=== PATIENT | female | born 1945 | race Caucasian/White ===

== ENCOUNTER 2019-04-12 09:09 | Emergency (ER) | payer MEDICARE ==
[2019-04-12 09:37] VITALS: BP 185/96; PULSE 104
--- NOTE | 2019-04-12 10:00 | EDM.PDOC ---
ED HPI GENERAL MEDICAL PROBLEM - General Chief Complaint: Behavioral/Psych Stated Complaint: HIGH BP, ANXIOUS Time Seen by Provider: 04/12/19 09:40 Source of Information: Reports: Patient, Family History Limitations: Reports: No Limitations - History of Present Illness INITIAL COMMENTS - FREE TEXT/NARRATIVE: 73-year-old female who has a long history of labile blood pressure and anxiety, saw bookkeeping machine operator on and they commented that she should see her primary care provider yesterday because her blood pressure is "very high and is going to give her a stroke". She has been extremely anxious since that time and checking her blood pressure frequently but did not call her doctor or going to be seen. She has no chest pain or shortness of breath, no dizziness or headache. This morning she checked her blood pressure and it was over 200 systolic, so came in to be seen. She did not take her hypertensive medication this morning because she wanted me to "see the whole picture". She is shaky and obviously anxious. After arriving to the emergency room 15 minutes later her blood pressure was 185/76. Onset: Unknown/Unsure Associated Symptoms: Reports: Other (Feels like her heart is pounding). Denies : Chest Pain, Diaphoresis, Malaise, Nausea/Vomiting, Shortness of Breath, Weakness - Related Data Allergies Allergy/AdvReac Type Severity Reaction Status Date / Time desogestrel Allergy Cannot Verified 04/12/19 09:25 Remember latanoprost Allergy Cannot Verified 04/12/19 09:25 Remember Sulfa (Sulfonamide Allergy Cannot Verified 04/12/19 09:25 Antibiotics) Remember Home Meds: Home Meds Aspirin 325 mg PO DAILY 09/09/15 [History] Calcium Carbonate/Vitamin D3 [OystCal-D 250 MG-125 Unit] 1 tab PO DAILY [History] Clobetasol [Clobetasol Propionate 0.05%] 30 gm TOP BID 09/09/15 [History] Hydrochlorothiazide 25 mg PO DAILY 09/09/15 [History] Multivitamin [Multi-Vitamin Daily] 1 each PO DAILY 09/09/15 [History] Niacin 1,000 mg PO BEDTIME 09/09/15 [History] Potassium Gluconate [Potassium] 99 mg PO DAILY 09/09/15 [History] Rosuvastatin Calcium [Crestor] 5 mg PO DAILY 09/09/15 [History] Vit C/E/Zn/Coppr/Lutein/Zeaxan [Preservision Areds 2 Softgel] 1 each PO DAILY [History] Losartan [Cozaar] 50 mg PO DAILY 04/12/19 [History] Past Medical History HEENT History: Reports: Impaired Vision, Other (See Below) Other HEENT History: dry eyes Cardiovascular History: Reports: Blood Clots/VTE/DVT, High Cholesterol, Hypertension Gastrointestinal History: Reports: Colon Polyp Genitourinary History: Reports: None Musculoskeletal History: Reports: Back Pain, Chronic, Other (See Below) Other Musculoskeletal History: chronic knee pain Neurological History: Reports: Migraines Oncologic (Cancer) History: Reports: Other (See Below) Other Oncologic History: melanoma on face Dermatologic History: Reports: Other (See Below) Other Dermatologic History: malignant melanoma - Infectious Disease History Infectious Disease History: Reports: Chicken Pox, Measles - Past Surgical History GI Surgical History: Reports: Colonoscopy Female Surgical History: Reports: Tubal Ligation Neurological Surgical History: Reports: None Dermatological Surgical History: Reports: Skin Biopsy Social & Family History - Tobacco Use Smoking Status *Q: Former Smoker Used Tobacco, but Quit: Yes Month/Year Tobacco Last Used: 40 years - Caffeine Use Caffeine Use: Reports: Coffee - Recreational Drug Use Recreational Drug Use: No ED ROS GENERAL - Review of Systems Review Of Systems: See Below Constitutional: Denies: Fever, Chills Respiratory: Denies: Shortness of Breath Cardiovascular: Reports: Palpitations. Denies: Chest Pain GI/Abdominal: Denies: Nausea, Vomiting Skin: Reports: No Symptoms Neurological: Denies: Headache Psychiatric: Reports: Anxiety ED EXAM, GENERAL - Physical Exam Exam: See Below Exam Limited By: No Limitations General Appearance: Alert, Anxious, Other (Patient is so nervous that she has a fine tremor and appears she is upset and about to cry) Respiratory/Chest: No Respiratory Distress, Lungs Clear Cardiovascular: Regular Rate, Rhythm, Tachycardia. No: Extra Beats GI/Abdominal: Soft, Non-Tender Extremities: Normal Inspection. No: Pedal Edema Neurological: Alert, Oriented Psychiatric: Anxious Skin Exam: Warm, Dry Course - Vital Signs Last Recorded V/S: Last Vital Signs Temp 96.9 F 04/12/19 09:15 Pulse 104 H 04/12/19 09:36 Resp 14 04/12/19 09:15 BP 185/96 H 04/12/19 09:36 Pulse Ox 99 04/12/19 09:36 - Re-Assessments/Exams Free Text/Narrative Re-Assessment/Exam: 04/12/19 09:58 Patient admits she did not take her blood pressure medication this morning, and she is also ingested a lot of salt over the recent holidays. She remembers having panic attacks when she was younger and she feels this is "similar". She has been worried she was going to have a stroke for the past 48 hours. She will be discharged with some Ativan to settle her down over the next 48 hours, encouraged to take her medications appropriately as prescribed, and avoid extra salt intake. If still significantly hypertensive on Sunday she should call the clinic or recheck at the emergency room if unable to get into the clinic. She understands the importance of returning sooner if she develops symptoms such as headache, chest pain or stroke symptoms. Departure - Departure Time of Disposition: 10:11 Disposition: Home, Self-Care 01 Clinical Impression: Anxiety Hypertension Qualifiers: Hypertension type: essential hypertension Qualified Code(s): I10 - Essential ( primary) hypertension - Discharge Information Instructions: Hypertension, [id number] Referrals: PCP,None [Primary Care Provider] - Forms: ED Department Discharge Care Plan Goals: Take your blood pressure medicines as prescribed, avoid extra salt intake over the weekend and use the Ativan as prescribed to reduce anxiety. Recheck next Sunday or Sunday if blood pressure remains elevated, or return sooner if you develop a headache, chest pain, or vision changes.
== END 2019-04-12 10:10 | disposition home or self-care (01) ==
LOC: JP.ED 09:09
DX: F41.9 Anxiety disorder, unspecified (principal); I10 Essential (primary) hypertension; Z88.8 Allergy status to other drugs, medicaments and biological substances; E78.00 Pure hypercholesterolemia, unspecified; Z79.82 Long term (current) use of aspirin; Z79.899 Other long term (current) drug therapy; Z86.73 Personal history of transient ischemic attack (TIA), and cerebral infarction without residual deficits; Z87.891 Personal history of nicotine dependence; Z88.2 Allergy status to sulfonamides; Z88.3 Allergy status to other anti-infective agents
CPT/HCPCS: 99283

== ENCOUNTER 2019-06-03 14:44 | Emergency (ER) | payer MEDICARE ==
[2019-06-03] MEDS ORDERED: Sodium Chloride 0.9% 10 ML Syringe FLUSH PRN (16:14)
[2019-06-03] MEDS ORDERED: LORazepam 0.5 MG Tab PO ONE (16:17)
[2019-06-03] MEDS ORDERED: Labetalol 100 MG/20 ML MDV IVPUSH ONE (16:17)
--- NOTE | 2019-06-03 16:18 | EDM.PDOC ---
ED HPI GENERAL MEDICAL PROBLEM - General Chief Complaint: Cardiovascular Problem Stated Complaint: BLOOD PRESSURE UP Time Seen by Provider: 06/03/19 16:18 Source of Information: Reports: Patient History Limitations: Reports: No Limitations - History of Present Illness INITIAL COMMENTS - FREE TEXT/NARRATIVE: pt has a history of getting markedly elevated bp when she goes to the dentist or the clinic. She was at the dentist today and was found to have elevated bp. She was sent here because her bp was over 200. Onset: Today, Sudden Duration: Hour(s): Location: Reports: Generalized, Other (hypertension) Associated Symptoms: Reports: Other ( elevated bp. ) - Related Data Allergies Allergy/AdvReac Type Severity Reaction Status Date / Time desogestrel Allergy Cannot Verified 06/03/19 15:16 Remember latanoprost Allergy Cannot Verified 06/03/19 15:16 Remember Sulfa (Sulfonamide Allergy Cannot Verified 06/03/19 15:16 Antibiotics) Remember Home Meds: Home Meds Aspirin 325 mg PO DAILY 09/09/15 [History] Calcium Carbonate/Vitamin D3 [OystCal-D 250 MG-125 Unit] 1 tab PO DAILY [History] Hydrochlorothiazide 25 mg PO DAILY 09/09/15 [History] Multivitamin [Multi-Vitamin Daily] 1 each PO DAILY 09/09/15 [History] Niacin 1,000 mg PO BEDTIME 09/09/15 [History] Potassium Gluconate [Potassium] 99 mg PO DAILY 09/09/15 [History] Rosuvastatin Calcium [Crestor] 5 mg PO DAILY 09/09/15 [History] Vit C/E/Zn/Coppr/Lutein/Zeaxan [Preservision Areds 2 Softgel] 1 each PO DAILY [History] Losartan [Cozaar] 50 mg PO DAILY 04/12/19 [History] LORazepam [Lorazepam] 1 mg PO ASDIRECTED 06/03/19 [History] Metoprolol Succinate 100 mg PO DAILY 06/03/19 [History] traZODone 50 mg PO BEDTIME 06/03/19 [History] Past Medical History HEENT History: Reports: Impaired Vision, Other (See Below) Other HEENT History: dry eyes Cardiovascular History: Reports: Blood Clots/VTE/DVT, High Cholesterol, Hypertension Gastrointestinal History: Reports: Colon Polyp Genitourinary History: Reports: None Musculoskeletal History: Reports: Back Pain, Chronic, Other (See Below) Other Musculoskeletal History: chronic knee pain Neurological History: Reports: Migraines Psychiatric History: Reports: Anxiety, Depression Oncologic (Cancer) History: Reports: Other (See Below) Other Oncologic History: melanoma on face Dermatologic History: Reports: Other (See Below) Other Dermatologic History: malignant melanoma - Infectious Disease History Infectious Disease History: Reports: Chicken Pox, Measles - Past Surgical History GI Surgical History: Reports: Colonoscopy Female Surgical History: Reports: Tubal Ligation Neurological Surgical History: Reports: None Dermatological Surgical History: Reports: Skin Biopsy Social & Family History - Tobacco Use Smoking Status *Q: Never Smoker - Caffeine Use Caffeine Use: Reports: Coffee - Alcohol Use Days Per Week of Alcohol Use: 2 Number of Drinks Per Day: 7 Total Drinks Per Week: 14 - Recreational Drug Use Recreational Drug Use: No ED ROS GENERAL - Review of Systems Review Of Systems: See Below Constitutional: Reports: No Symptoms HEENT: Reports: No Symptoms Respiratory: Reports: No Symptoms Cardiovascular: Reports: Blood Pressure Problem Endocrine: Reports: No Symptoms GI/Abdominal: Reports: No Symptoms : Reports: No Symptoms Musculoskeletal: Reports: No Symptoms Skin: Reports: No Symptoms Neurological: Reports: No Symptoms Psychiatric: Reports: Anxiety ED EXAM, GENERAL - Physical Exam Exam: See Below Free Text/Narrative:: pt is a very anxious appearing pt who was at the dental office and her bp was very elevated. She has a history of white coat syndrome. Exam Limited By: No Limitations General Appearance: Alert, No Apparent Distress, Severe Distress, Other (pupils equql and reactive. ) Ears: Normal TMs Nose: Normal Inspection Throat/Mouth: Normal Inspection Head: Atraumatic Neck: Normal Inspection Respiratory/Chest: No Respiratory Distress Cardiovascular: Regular Rate, Rhythm GI/Abdominal: Soft, Non-Tender (Female) Exam: Deferred Rectal (Female) Exam: Deferred Back Exam: Normal Inspection Extremities: Normal Inspection Course - Vital Signs Last Recorded V/S: Last Vital Signs Temp 36.2 C 06/03/19 15:15 Pulse 82 06/03/19 17:43 Resp 16 06/03/19 17:43 BP 153/81 H 06/03/19 17:53 Pulse Ox 99 06/03/19 17:43 - Orders/Labs/Meds Orders: Active Orders 24 hr Category Date Time Status Sodium Chloride 0.9% [Saline Flush] Med 06/03/19 16:14 Active 10 ml FLUSH ASDIRECTED PRN Saline Lock Insert [OM.PC] Routine Oth 06/03/19 16:14 Ordered Medication Orders Sodium Chloride (Saline Flush) 10 ml FLUSH ASDIRECTED PRN PRN Reason: Keep Vein Open Labs: Laboratory Tests 06/03/19 Range/Units 16:18 Sodium 129 L (140-148) mmol/L Potassium 3.4 L (3.6-5.2) mmol/L Chloride 92 L (100-108) mmol/L Carbon Dioxide 24 (21-32) mmol/L Anion Gap 16.4 H (5.0-14.0) mmol/L BUN 15 (7-18) mg/dL Creatinine 0.7 (0.6-1.0) mg/dL Est Cr Clr Drug Dosing 69.60 mL/min Estimated GFR (MDRD) > 60 (>60) Glucose 110 H (74-106) mg/dL Calcium 9.5 (8.5-10.1) mg/dL Meds: Medications Generic Name Dose Route Start Last Admin Trade Name Freq PRN Reason Stop Dose Admin Sodium Chloride 10 ml 06/03/19 16:14 Saline Flush FLUSH ASDIRECTED PRN Keep Vein Open Discontinued Medications Generic Name Dose Route Start Last Admin Trade Name Freq PRN Reason Stop Dose Admin Labetalol HCl 20 mg 06/03/19 17:00 06/03/19 16:57 Normodyne IVPUSH 06/03/19 17:01 20 mg ONETIME ONE Administration Protocol Lorazepam 0.5 mg 06/03/19 16:17 06/03/19 16:57 Ativan PO 06/03/19 16:18 0.5 mg ONETIME ONE Administration Losartan Potassium 50 mg 06/03/19 17:48 06/03/19 17:53 Cozaar PO 06/03/19 17:49 50 mg ONETIME ONE Administration - Re-Assessments/Exams Free Text/Narrative Re-Assessment/Exam: 06/03/19 17:56 pt was given ativan .5 and she was given labetlol 20 mg . Her bp did come down some with that. She was given ativan .5. She is much more relaxed but still has a reading of 170/110. She was given her usual cozaar 50 mg and will continue to watch. Departure - Departure Time of Disposition: 18:24 Disposition: Home, Self-Care 01 Condition: Fair Clinical Impression: Panic attack Hypertension Qualifiers: Hypertension type: essential hypertension Qualified Code(s): I10 - Essential ( primary) hypertension Referrals: Anita Nails PA [Primary Care Provider] - Forms: ED Department Discharge Care Plan Goals: continue the same meds. Next time pt has a clinic appt take ativan .5 prior to going to the clinic. Sepsis Event Note - Evaluation Sepsis Screening Result: No Definite Risk - Focused Exam Vital Signs: Vital Signs Temp Pulse Resp BP BP Pulse Ox 06/03/19 17:53 153/81 H 06/03/19 17:43 82 16 164/86 H 99 06/03/19 16:54 90 181/101 H 97 06/03/19 16:07 90 190/100 H 98 06/03/19 15:33 86 184/97 H 97 06/03/19 15:15 36.2 C 97 18 187/95 H 96 06/03/19 15:12 36.2 C 97 18 200/103 H 96 Date Exam was Performed: 06/03/19 Time Exam was Performed: 18:23 - My Orders Last 24 Hours: My Active Orders 06/03/19 16:14 Sodium Chloride 0.9% [Saline Flush] 10 ml FLUSH ASDIRECTED PRN Saline Lock Insert [OM.PC] Routine - Assessment/Plan Last 24 Hours: My Active Orders 06/03/19 16:14 Sodium Chloride 0.9% [Saline Flush] 10 ml FLUSH ASDIRECTED PRN Saline Lock Insert [OM.PC] Routine
[2019-06-03] MEDS ORDERED: Labetalol 20 MG/4 ML Syringe IVPUSH ONE (17:00)
[2019-06-03 17:44] VITALS: PULSE 82
[2019-06-03] MEDS ORDERED: Losartan 50 MG Tab PO ONE (17:48)
[2019-06-03 17:54] VITALS: BP 153/81
== END 2019-06-03 18:47 | disposition home or self-care (01) ==
LOC: JP.ED 14:44
DX: F41.0 Panic disorder [episodic paroxysmal anxiety] (principal); I10 Essential (primary) hypertension; E78.00 Pure hypercholesterolemia, unspecified; F41.9 Anxiety disorder, unspecified; F32.9 Major depressive disorder, single episode, unspecified; Z88.8 Allergy status to other drugs, medicaments and biological substances; Z88.2 Allergy status to sulfonamides; Z79.82 Long term (current) use of aspirin; Z79.899 Other long term (current) drug therapy
CPT/HCPCS: 36415; 80048; 96374; 99284; A9270; J3490

== ENCOUNTER 2022-10-05 10:03 | Observation (INO) | payer MEDICARE ==
[2022-10-05] MEDS ORDERED: Diltiazem 25 MG/5 ML SDV IVPUSH ONE (10:31)
[2022-10-05 10:37] LABS: BASOPHILS ABSOLUTE AUTO 0.08 K/uL (0.00-0.10); BASOPHILS PERCENT AUTO 0.9 % (0.1-1.3); EOSINOPHILS PERCENT AUTO 1.1 % (0.0-5.4); HEMATOCRIT 39.7 % (34.3-46.0); HEMOGLOBIN 13.8 g/dL (11.2-15.5); IMMATURE GRAN ABSOLUTE AUTO 0.06 K/uL (0.00-0.23); IMMATURE GRAN PERCENT AUTO 0.7 % (0.0-0.7); LYMPHOCYTES ABSOLUTE AUTO 1.53 K/uL (0.8-3.3); LYMPHOCYTES PERCENT AUTO 16.8 % (11.4-47.7); MEAN CORPUSCULAR HEMOGLOBIN 32.8 pg (31.6-35.5); MEAN CORPUSCULAR HGB CONC 34.8 g/dL (31.6-35.5); MEAN CORPUSCULAR VOLUME 94.3 fL (81.4-99.0); MONOCYTES ABSOLUTE AUTO 0.69 K/uL (0.20-0.90); MONOCYTES PERCENT AUTO 7.6 % (3.3-12.6); NEUTROPHILS ABSOLUTE AUTO 6.64 K/uL (1.0-7.6); NEUTROPHILS PERCENT AUTO 72.9 % (40.0-78.1); PLATELET COUNT,PLT 391 K/uL (130-375); RED BLOOD CELL COUNT 4.21 M/uL (3.77-5.24); WHITE BLOOD CELL COUNT,WBC 9.1 K/uL (3.2-11.0)
[2022-10-05] MEDS: Diltiazem 100 MG in Sodium Chloride 0.9% 100 ML IV SCH ×2 (10:52→17:47)
[2022-10-05 11:01] LABS: CALCIUM 10.3 mg/dL (8.5-10.1); CREATININE 0.9 mg/dL (0.6-1.0); MAGNESIUM 1.5 mg/dL (1.8-2.4); PHOSPHORUS 2.6 mg/dL (2.5-4.9); POTASSIUM,K 3.4 mmol/L (3.6-5.2); TROPONIN I HIGH SENSITIVITY 8.7 pg/mL (<=60.3); TSH ULTRASENSITIVE 5.44 uIU/mL (0.358-3.740)
[2022-10-05 11:03] LABS: ANION GAP 14.4 mmol/L (5.0-14.0)
[2022-10-05] MEDS ORDERED: Magnesium Sulfate/Water 2 GM in Premix Bag 1 BAG IV ONE (11:15)
[2022-10-05] MEDS ORDERED: Potassium Chloride 20 MEQ Tab.ER PO ONE (11:33)
[2022-10-05 12:47] LABS: APPEARANCE,URINE CLEAR (CLEAR); BILIRUBIN,URINE NEGATIVE (NEGATIVE); COLOR,URINE YELLOW (YELLOW); GLUCOSE,URINE NEGATIVE (NEGATIVE); KETONES,URINE NEGATIVE (NEGATIVE); LEUKOCYTE ESTERASE,URINE NEGATIVE (NEGATIVE); NITRITE,URINE NEGATIVE (NEGATIVE); OCCULT BLOOD,URINE TRACE-INTACT (NEGATIVE); PROTEIN,URINE 30 mg/dL (NEGATIVE); UROBILINOGEN,URINE 0.2 EU/dL (0.2-1.0)
[2022-10-05 12:54] LABS: AMORPHOUS SEDIMENT,URINE NOT SEEN; BACTERIA,URINE NOT SEEN; EPITHELIAL CELLS,URINE FEW; MUCUS,URINE NOT SEEN; RBC,URINE 0-5 (0-5); WBC,URINE NOT SEEN (0-5)
[2022-10-05] MEDS ORDERED: Adenosine 6 MG/2 ML SDV IVPUSH ONE (12:58)
[2022-10-05] MEDS ORDERED: Magnesium Hydroxide 400 MG/5 ML Susp 30 ML Cup PO PRN (13:39)
[2022-10-05] MEDS ORDERED: Ondansetron 4 MG/2 ML SDV IV PRN (13:39)
[2022-10-05] MEDS ORDERED: Ondansetron 4 MG Tab.DIS PO PRN (13:39)
[2022-10-05] MEDS ORDERED: Sodium Chloride 0.9% 1,000 ML IV SCH (13:39)
[2022-10-05] MEDS ORDERED: Acetaminophen 325 MG Tab PO PRN (13:39)
[2022-10-05] MEDS: LORazepam 1 MG Tab PO PRN ×2 (13:49→21:51)
[2022-10-05] MEDS ORDERED: Enoxaparin 40 MG/0.4 ML Syringe SUBCUT SCH (16:00)
[2022-10-05] MEDS: Magnesium Sulfate/Water 2 GM in Premix Bag 1 BAG IV SCH (17:49)
[2022-10-05] MEDS: Melatonin 3 MG Tab PO PRN (21:50)
[2022-10-05] MEDS: Niacin 250 MG Tab.ER PO SCH (21:50)
[2022-10-05] MEDS: traZODone 50 MG Tab PO SCH (21:51)
[2022-10-05] MEDS: Rosuvastatin 5 MG Tab PO SCH (22:00)
[2022-10-05] MEDS: Metoprolol Succinate 50 MG Tab.ER PO SCH (22:01)
[2022-10-06] MEDS: Diltiazem 100 MG in Sodium Chloride 0.9% 100 ML IV SCH (00:30)
[2022-10-06] MEDS: Magnesium Sulfate/Water 2 GM in Premix Bag 1 BAG IV SCH (00:32)
[2022-10-06 04:54] LABS: HEMATOCRIT 37.4 % (34.3-46.0); MEAN CORPUSCULAR HEMOGLOBIN 32.7 pg (31.6-35.5); MEAN CORPUSCULAR HGB CONC 34.8 g/dL (31.6-35.5); MEAN CORPUSCULAR VOLUME 94.2 fL (81.4-99.0); RED BLOOD CELL COUNT 3.97 M/uL (3.77-5.24); WHITE BLOOD CELL COUNT,WBC 9.6 K/uL (3.2-11.0)
[2022-10-06 05:03] LABS: CALCIUM 10.2 mg/dL (8.5-10.1); CREATININE 1.1 mg/dL (0.6-1.0); EST CRCL DRUG DOSING (CG) 40.31 mL/min; POTASSIUM,K 4.1 mmol/L (3.6-5.2)
[2022-10-06 05:14] LABS: ANION GAP 14.1 mmol/L (5.0-14.0)
[2022-10-06] MEDS ORDERED: Aspirin 325 MG Tab.EC PO SCH (09:00)
[2022-10-06] MEDS ORDERED: Rosuvastatin 5 MG Tab PO SCH (09:00)
[2022-10-06] MEDS ORDERED: Diltiazem IR 30 MG Tab PO SCH (09:00)
[2022-10-06] MEDS ORDERED: Non-Formulary Medication 1 Each (Vit C/E/Zn/Coppr/Lutein/Zeaxan [Preservision Areds 2 Soft PO SCH (09:00)
[2022-10-06] MEDS ORDERED: Metoprolol Succinate 50 MG Tab.ER PO SCH (09:00)
[2022-10-06] MEDS: Hydrochlorothiazide 25 MG Tab PO SCH (09:09)
[2022-10-06] MEDS: Multivitamins with Iron/Calcium/Folic Acid/Minerals Tab PO SCH (09:10)
[2022-10-06] MEDS: Losartan 50 MG Tab PO SCH (09:10)
[2022-10-06] MEDS: Diltiazem IR 30 MG Tab PO SCH ×2 (15:02→21:15)
[2022-10-06] MEDS ORDERED: Rivaroxaban 10 MG Tab PO SCH ×2 (17:00)
[2022-10-06] MEDS: Metoprolol Succinate 50 MG Tab.ER PO SCH (21:16)
[2022-10-06] MEDS: traZODone 50 MG Tab PO SCH (21:16)
[2022-10-06] MEDS: Niacin 250 MG Tab.ER PO SCH (21:16)
[2022-10-06] MEDS: Rosuvastatin 5 MG Tab PO SCH (21:16)
[2022-10-06] MEDS: Melatonin 3 MG Tab PO PRN (21:16)
[2022-10-06] MEDS: LORazepam 1 MG Tab PO PRN (21:17)
[2022-10-07] MEDS: Diltiazem IR 30 MG Tab PO SCH (03:10)
[2022-10-07] MEDS: Multivitamins with Iron/Calcium/Folic Acid/Minerals Tab PO SCH (08:11)
[2022-10-07] MEDS: Losartan 50 MG Tab PO SCH (08:11)
[2022-10-07] MEDS: Hydrochlorothiazide 25 MG Tab PO SCH (08:12)
[2022-10-07] MEDS ORDERED: Diltiazem 180 MG Cap.CD PO SCH (09:00)
[2022-10-07] MEDS ORDERED: Aspirin 81 MG Tab.EC PO SCH (09:00)
[2022-10-07 13:42] VITALS: BP 111/66; PULSE 97
== END 2022-10-07 13:29 | disposition home or self-care (01) ==
LOC: JP.ED 10:03 → JP.ICU 12:37 → INTOOBSV 12:37
PROVIDERS: ADMIT Internal Medicine; ATTEND Internal Medicine
DX: I48.92 Unspecified atrial flutter (principal); I48.91 Unspecified atrial fibrillation; E83.42 Hypomagnesemia; E87.1 Hypo-osmolality and hyponatremia; E87.6 Hypokalemia; I10 Essential (primary) hypertension; M54.9 Dorsalgia, unspecified; F41.1 Generalized anxiety disorder; G89.29 Other chronic pain; F32.A Depression, unspecified; M25.569 Pain in unspecified knee; Z20.822 Contact with and (suspected) exposure to COVID-19; Z79.82 Long term (current) use of aspirin; Z79.01 Long term (current) use of anticoagulants; Z79.899 Other long term (current) drug therapy; Z88.2 Allergy status to sulfonamides; Z88.8 Allergy status to other drugs, medicaments and biological substances; Z87.891 Personal history of nicotine dependence
CPT/HCPCS: 36415; 71045; 80048; 81001; 83735; 83970; 84100; 84443; 84484; 85025; 85027; 93005; 93010; 96365; 96366; 96368; 99222; 99232; 99238; 99285; A9270; C8929; J0153; J1650; J3475; J3490; U0002

== ENCOUNTER 2022-12-12 14:34 | Emergency (ER) | payer MEDICARE ==
[2022-12-12] MEDS ORDERED: LORazepam 0.5 MG Tab PO ONE (15:13)
[2022-12-12 15:30] LABS: BASOPHILS ABSOLUTE AUTO 0.05 K/uL (0.00-0.10); BASOPHILS PERCENT AUTO 0.6 % (0.1-1.3); EOSINOPHILS ABSOLUTE AUTO 0.05 K/uL (0.00-0.40); EOSINOPHILS PERCENT AUTO 0.6 % (0.0-5.4); HEMATOCRIT 15.1 % (34.3-46.0); IMMATURE GRAN ABSOLUTE AUTO 0.04 K/uL (0.00-0.23); IMMATURE GRAN PERCENT AUTO 0.5 % (0.0-0.7); LYMPHOCYTES ABSOLUTE AUTO 1.22 K/uL (0.8-3.3); LYMPHOCYTES PERCENT AUTO 14.2 % (11.4-47.7); MEAN CORPUSCULAR HEMOGLOBIN 29.4 pg (31.6-35.5); MEAN CORPUSCULAR HGB CONC 31.8 g/dL (31.6-35.5); MEAN CORPUSCULAR VOLUME 92.6 fL (81.4-99.0); MONOCYTES ABSOLUTE AUTO 0.56 K/uL (0.20-0.90); MONOCYTES PERCENT AUTO 6.5 % (3.3-12.6); NEUTROPHILS ABSOLUTE AUTO 6.68 K/uL (1.0-7.6); NEUTROPHILS PERCENT AUTO 77.6 % (40.0-78.1); PLATELET COUNT,PLT 321 K/uL (130-375); RED BLOOD CELL COUNT 1.63 M/uL (3.77-5.24); WHITE BLOOD CELL COUNT,WBC 8.6 K/uL (3.2-11.0)
[2022-12-12 15:32] LABS: HEMOGLOBIN 4.8 g/dL (11.2-15.5)
[2022-12-12 15:50] LABS: ALANINE AMINOTRANSFERASE,ALT 21 U/L (12-78); ALBUMIN 3.1 g/dL (3.4-5.0); ALKALINE PHOSPHATASE 50 U/L (46-116); ASPARTATE AMNIOTRANSFERASE,AST 24 U/L (15-37); BILIRUBIN TOTAL 0.2 mg/dL (0.2-1.0); BLOOD UREA NITROGEN,BUN 24 mg/dL (7-18); CALCIUM 9.1 mg/dL (8.5-10.1); CARBON DIOXIDE,CO2 28 mmol/L (21-32); CHLORIDE,CL 102 mmol/L (100-108); CREATININE 0.7 mg/dL (0.6-1.0); EST CRCL DRUG DOSING (CG) 64.23 mL/min; ESTIMATED GFR 89 mL/min (>60); GLUCOSE RANDOM 120 mg/dL (74-106); POTASSIUM,K 3.3 mmol/L (3.6-5.2); PROTEIN TOTAL,TP 6.2 g/dL (6.4-8.2); SODIUM,NA 136 mmol/L (140-148); TROPONIN I HIGH SENSITIVITY 7.8 pg/mL (<=60.3)
[2022-12-12 15:51] LABS: ANION GAP 9.3 mmol/L (5.0-14.0)
[2022-12-12] MEDS ORDERED: Pantoprazole 80 MG in Sodium Chloride 0.9% 100 ML IV SCH (16:45)
[2022-12-12 16:50] LABS: APPEARANCE,URINE CLEAR (CLEAR); BILIRUBIN,URINE NEGATIVE (NEGATIVE); COLOR,URINE YELLOW (YELLOW); GLUCOSE,URINE NEGATIVE (NEGATIVE); KETONES,URINE NEGATIVE (NEGATIVE); LEUKOCYTE ESTERASE,URINE SMALL (NEGATIVE); NITRITE,URINE NEGATIVE (NEGATIVE); OCCULT BLOOD,URINE TRACE-INTACT (NEGATIVE); PROTEIN,URINE NEGATIVE (NEGATIVE); UROBILINOGEN,URINE 0.2 EU/dL (0.2-1.0)
[2022-12-12 17:00] LABS: AMORPHOUS SEDIMENT,URINE NOT SEEN; BACTERIA,URINE FEW; EPITHELIAL CELLS,URINE RARE; MUCUS,URINE NOT SEEN; RBC,URINE 0-5 (0-5); WBC,URINE 0-5 (0-5)
[2022-12-12 18:20] VITALS: BP 145/56; PULSE 103
== END 2022-12-12 18:10 ==
LOC: JP.ED 14:34
DX: D64.9 Anemia, unspecified (principal); Z87.891 Personal history of nicotine dependence; E78.00 Pure hypercholesterolemia, unspecified; I48.91 Unspecified atrial fibrillation; Z79.82 Long term (current) use of aspirin; Z79.02 Long term (current) use of antithrombotics/antiplatelets; Z79.899 Other long term (current) drug therapy; Z88.2 Allergy status to sulfonamides; Z88.8 Allergy status to other drugs, medicaments and biological substances
CPT/HCPCS: 36415; 36430; 80053; 81001; 83690; 84484; 85025; 86850; 86900; 86901; 86920; 86922; 93005; 96365; 99285; A9270; C9113; J3490; P9016; 93010

== ENCOUNTER 2023-12-18 03:31 | Inpatient (IN) | payer MEDICARE ==
[2023-12-18 04:06] LABS: BASOPHILS PERCENT AUTO 1.3 % (0.1-1.3); EOSINOPHILS ABSOLUTE AUTO 0.24 K/uL (0.00-0.40); EOSINOPHILS PERCENT AUTO 3.2 % (0.0-5.4); HEMATOCRIT 34.6 % (34.3-46.0); HEMOGLOBIN 12.4 g/dL (11.2-15.5); IMMATURE GRAN ABSOLUTE AUTO 0.05 K/uL (0.00-0.23); IMMATURE GRAN PERCENT AUTO 0.7 % (0.0-0.7); LYMPHOCYTES ABSOLUTE AUTO 1.97 K/uL (0.8-3.3); LYMPHOCYTES PERCENT AUTO 26.2 % (11.4-47.7); MEAN CORPUSCULAR HEMOGLOBIN 33.2 pg (31.6-35.5); MEAN CORPUSCULAR HGB CONC 35.8 g/dL (31.6-35.5); MEAN CORPUSCULAR VOLUME 92.5 fL (81.4-99.0); MONOCYTES ABSOLUTE AUTO 0.67 K/uL (0.20-0.90); MONOCYTES PERCENT AUTO 8.9 % (3.3-12.6); NEUTROPHILS ABSOLUTE AUTO 4.48 K/uL (1.0-7.6); NEUTROPHILS PERCENT AUTO 59.7 % (40.0-78.1); PLATELET COUNT,PLT 331 K/uL (130-375); RED BLOOD CELL COUNT 3.74 M/uL (3.77-5.24); WHITE BLOOD CELL COUNT,WBC 7.5 K/uL (3.2-11.0)
[2023-12-18 04:31] LABS: A/G RATIO 0.9 (1.2-2.2); ALANINE AMINOTRANSFERASE,ALT 37 U/L (12-78); ALBUMIN 3.7 g/dL (3.4-5.0); ALKALINE PHOSPHATASE 68 U/L (46-116); ASPARTATE AMNIOTRANSFERASE,AST 23 U/L (15-37); BILIRUBIN TOTAL 0.5 mg/dL (0.2-1.0); BLOOD UREA NITROGEN,BUN 13 mg/dL (7-18); CALCIUM 10.7 mg/dL (8.5-10.1); CARBON DIOXIDE,CO2 26 mmol/L (21-32); CHLORIDE,CL 92 mmol/L (100-108); ESTIMATED GFR 58 mL/min (>60); GLUCOSE RANDOM 113 mg/dL (74-106); PROTEIN TOTAL,TP 7.9 g/dL (6.4-8.2); SODIUM,NA 132 mmol/L (140-148); TSH ULTRASENSITIVE 4.296 uIU/mL (0.358-3.740)
[2023-12-18] MEDS: Sodium Chloride 0.9% 10 ML Syringe FLUSH PRN (04:33)
[2023-12-18] MEDS: Diltiazem 25 MG/5 ML SDV IVPUSH ONE (04:33)
[2023-12-18] MEDS: Potassium Chloride 20 MEQ Tab.ER PO ONE ×3 (04:46→20:05)
[2023-12-18] MEDS: Diltiazem 100 MG in Sodium Chloride 0.9% 100 ML IV SCH ×2 (04:47→11:57)
[2023-12-18] MEDS: Magnesium Sulfate/Water 2 GM in Premix Bag 1 BAG IV ONE (05:00)
[2023-12-18 05:34] LABS: APPEARANCE,URINE CLEAR (CLEAR); BILIRUBIN,URINE NEGATIVE (NEGATIVE); COLOR,URINE YELLOW (YELLOW); GLUCOSE,URINE NEGATIVE (NEGATIVE); KETONES,URINE NEGATIVE (NEGATIVE); LEUKOCYTE ESTERASE,URINE NEGATIVE (NEGATIVE); NITRITE,URINE NEGATIVE (NEGATIVE); OCCULT BLOOD,URINE TRACE-INTACT (NEGATIVE); PROTEIN,URINE 100 mg/dL (NEGATIVE); UROBILINOGEN,URINE 0.2 EU/dL (0.2-1.0)
[2023-12-18 05:41] LABS: AMORPHOUS SEDIMENT,URINE NOT SEEN; BACTERIA,URINE RARE; EPITHELIAL CELLS,URINE RARE; MUCUS,URINE RARE; RBC,URINE 0-5 (0-5); WBC,URINE 0-5 (0-5)
[2023-12-18 05:52] LABS: T3 FREE 2.6 pg/dL (2.18-3.98); T4 FREE 0.85 ng/dL (0.76-1.46); TROPONIN I HIGH SENSITIVITY 8.4 pg/mL (<=60.3)
[2023-12-18] MEDS: Metoprolol Succinate 50 MG Tab.ER PO ONE (07:44)
[2023-12-18] MEDS ORDERED: Polyethylene Glycol 3350 Powder 17 GM Packet PO PRN (09:49)
[2023-12-18] MEDS ORDERED: Non-Formulary Medication 1 Each (Potassium Gluconate [Potassium] 99 MG Tablet) PO SCH (09:49)
[2023-12-18] MEDS ORDERED: Ondansetron 4 MG/2 ML SDV IV PRN (09:49)
[2023-12-18] MEDS ORDERED: Non-Formulary Medication 1 Each (Metoprolol Succinate [Metoprolol Succinate] 100 MG Tab.Er PO SCH (09:49)
[2023-12-18] MEDS ORDERED: Acetaminophen 325 MG Tab PO PRN (09:49)
[2023-12-18] MEDS ORDERED: Sodium Chloride 0.9% 10 ML Syringe FLUSH PRN (09:49)
[2023-12-18] MEDS: Potassium Chloride 10 MEQ Cap.ER PO SCH (10:56)
[2023-12-18] MEDS: Aspirin 81 MG Tab.Chew PO SCH (10:56)
[2023-12-18] MEDS: Enoxaparin 40 MG/0.4 ML Syringe SUBCUT SCH (10:56)
[2023-12-18] MEDS: Metoprolol Succinate 50 MG Tab.ER PO SCH (10:57)
[2023-12-18] MEDS: PREDNISOLO EYERT SCH (14:00)
[2023-12-18] MEDS: MOXIFLOXACIN EYELF SCH (14:00)
[2023-12-18] MEDS: PREDNISOLONE EYELF SCH (14:00)
[2023-12-18] MEDS: [UNRECOGNIZED DRUG - OTHER] EYERT SCH (14:00)
[2023-12-18] MEDS: BROMFENAC EYELF SCH (14:00)
[2023-12-18] MEDS: Potassium Chloride 20 MEQ Tab.ER ONE (20:26)
[2023-12-18] MEDS ORDERED: Rosuvastatin 10 MG Tab PO SCH (21:00)
[2023-12-18] MEDS ORDERED: Non-Formulary Medication 1 Each (Trazodone [Trazodone] 100 MG Tablet) PO SCH (21:00)
[2023-12-18] MEDS: traZODone 50 MG Tab PO SCH (21:13)
[2023-12-18] MEDS: Rosuvastatin 5 MG Tab PO SCH (21:14)
[2023-12-18] MEDS: LORazepam 1 MG Tab PO PRN (21:14)
[2023-12-18 21:20] LABS: CALCIUM 9.5 mg/dL (8.5-10.1); CREATININE 0.9 mg/dL (0.6-1.0); EST CRCL DRUG DOSING (CG) 48.23 mL/min; MAGNESIUM 1.6 mg/dL (1.8-2.4); POTASSIUM,K 3.4 mmol/L (3.6-5.2)
[2023-12-18 21:22] LABS: ANION GAP 14.4 mmol/L (5.0-14.0)
[2023-12-19 05:25] LABS: HEMATOCRIT 31.6 % (34.3-46.0); HEMOGLOBIN 11.4 g/dL (11.2-15.5); MEAN CORPUSCULAR HEMOGLOBIN 33.7 pg (31.6-35.5); MEAN CORPUSCULAR HGB CONC 36.1 g/dL (31.6-35.5); MEAN CORPUSCULAR VOLUME 93.5 fL (81.4-99.0); RED BLOOD CELL COUNT 3.38 M/uL (3.77-5.24); WHITE BLOOD CELL COUNT,WBC 7.3 K/uL (3.2-11.0)
[2023-12-19 05:45] LABS: CALCIUM 9.1 mg/dL (8.5-10.1); CREATININE 0.9 mg/dL (0.6-1.0); EST CRCL DRUG DOSING (CG) 48.23 mL/min; POTASSIUM,K 3.5 mmol/L (3.6-5.2)
[2023-12-19 05:50] LABS: ANION GAP 13.5 mmol/L (5.0-14.0)
[2023-12-19] MEDS ORDERED: VASCEPA 1 GM PO SCH (09:00)
[2023-12-19] MEDS: Magnesium Sulfate/Water 2 GM in Premix Bag 1 BAG IV SCH (09:14)
[2023-12-19] MEDS: Potassium Chloride 20 MEQ Tab.ER PO ONE ×2 (09:22→14:31)
[2023-12-19] MEDS: Magnesium Oxide 400 MG Tab PO SCH (09:22)
[2023-12-19] MEDS: Diltiazem 180 MG Cap.CD PO SCH (12:19)
[2023-12-19] MEDS: SLO NIACIN 500 MG PO SCH (15:13)
[2023-12-19 17:13] LABS: MAGNESIUM 2.6 mg/dL (1.8-2.4); POTASSIUM,K 4.6 mmol/L (3.6-5.2)
[2023-12-20 06:03] LABS: CALCIUM 8.9 mg/dL (8.5-10.1); CREATININE 0.8 mg/dL (0.6-1.0); EST CRCL DRUG DOSING (CG) 54.25 mL/min; MAGNESIUM 2.1 mg/dL (1.8-2.4); POTASSIUM,K 4.5 mmol/L (3.6-5.2)
[2023-12-20 06:07] LABS: ANION GAP 15.5 mmol/L (5.0-14.0)
[2023-12-20 10:50] VITALS: BP 126/72; PULSE 79
== END 2023-12-20 12:21 | disposition home or self-care (01) | DRG 310 ==
LOC: JP.ED 03:31 → JP.ICU 08:26
PROVIDERS: ADMIT Hospitalist; ATTEND Hospitalist
PROC: 5A2204Z Restoration of Cardiac Rhythm, Single (ICD-10-PCS; principal; 2023-12-19)
DX: I48.91 Unspecified atrial fibrillation (principal); I48.0 Paroxysmal atrial fibrillation; E78.00 Pure hypercholesterolemia, unspecified; I10 Essential (primary) hypertension; Z88.2 Allergy status to sulfonamides; M19.90 Unspecified osteoarthritis, unspecified site; G43.909 Migraine, unspecified, not intractable, without status migrainosus; F41.9 Anxiety disorder, unspecified; F32.A Depression, unspecified; E87.6 Hypokalemia; E83.42 Hypomagnesemia; Z88.8 Allergy status to other drugs, medicaments and biological substances; Z88.1 Allergy status to other antibiotic agents; Z79.01 Long term (current) use of anticoagulants; Z79.82 Long term (current) use of aspirin; Z79.899 Other long term (current) drug therapy; Z85.820 Personal history of malignant melanoma of skin; Z90.89 Acquired absence of other organs; Z98.49 Cataract extraction status, unspecified eye; Z90.49 Acquired absence of other specified parts of digestive tract; Z98.890 Other specified postprocedural states; Z98.51 Tubal ligation status
CPT/HCPCS: 36415; 80053; 81001; 83735 ×2; 84132; 84439; 84443; 84481; 84484; 85025; 93005; 93010; 96365; 96366; 96367; 96376; 99285 ×2; A9270 ×2; J3475; J3490 ×4; 80048; 85027; 92960; 99156; 99222; 99232; 99238; J1650